=== PATIENT | female | born 1970 | race African-American/Black ===

== ENCOUNTER 2017-08-05 16:39 | Inpatient (IN) | payer OTHER ==
[2017-08-05 17:48] VITALS: BMI 29.7
[2017-08-05] MEDS ORDERED: MAGNESIUM CITRATE 300 ML BOTTLE PO PRN (18:23)
[2017-08-05] MEDS ORDERED: ACETAMINOPHEN 325 MG TABLET (FP) PO PRN (18:23)
[2017-08-05] MEDS ORDERED: P-EPHED 60MG/TRIPROLIDI 2.5MG TABLET PO PRN (18:23)
[2017-08-05] MEDS ORDERED: MENTHOL/PHENOL 1 EACH UD MM PRN (18:23)
[2017-08-05] MEDS ORDERED: NICOTINE POLACRILEX 4 MG GUM BUC PRN (18:23)
[2017-08-05] MEDS ORDERED: MAGNESIUM HYDROX 2400MG/30ML ORAL SUSPENSION 30 ML CUP PO PRN (18:23)
[2017-08-05] MEDS ORDERED: LOPERAMIDE HCL 2 MG CAPSULE PO PRN (18:23)
--- NOTE | 2017-08-05 18:26 | HP ---
Admission ROS [facility] Chief Complaint: I WANT TO GO TO REHAB Allergies/Adverse Reactions: Allergies Allergy/AdvReac Type Severity Reaction Status Date / Time No Known Allergies Allergy Verified 08/05/17 19:02 History of Present Illness: 47 YEARS OLD FEMALE WITH LONG HISTORY OF ALCOHOL NICOTINE DEPENDENCE HAS HIV IS ADMITTED TO REHAB Exam Limitations: No Limitations - Ebola screening Have you traveled outside of the country in the last 21 days: No Have you had contact with anyone from an Ebola affected area: No Have you been sick,other than usual withdrawal symptoms: No Do you have a fever: No - Review of Systems Constitutional: Weight Stable EENT: reports: No Symptoms Reported Respiratory: reports: Cough Cardiac: reports: No Symptoms Reported GI: reports: No Symptoms Reported : reports: No Symptoms Reported Musculoskeletal: reports: No Symptoms Reported Integumentary: reports: No Symptoms Reported Neuro: reports: No Symptoms reported Endocrine: reports: No Symptoms Reported Hematology: reports: No Symptoms Reported Psychiatric: reports: Judgement Intact, Mood/Affect Appropiate, Orientated x3 Other Systems: Reviewed and Negative Patient History - Patient Medical History Hx Anemia: No Hx Asthma: No Hx Chronic Obstructive Pulmonary Disease (COPD): No Hx Cancer: No Hx Cardiac Disorders: No Hx Congestive Heart Failure: No Hx Hypertension: No Hx Hypercholesterolemia: No Hx Pacemaker: No HX Cerebrovascular Accident: No Hx Seizures: No Hx Dementia: No Hx Diabetes: No Hx Gastrointestinal Disorders: No Hx Liver Disease: No Hx Genitourinary Disorders: No Hx Sexually Transmitted Disorders: No Hx Renal Disease (ESRD): No Hx Thyroid Disease: No Hx Human Immunodeficiency Virus (HIV): Yes Hx Hepatitis C: No Hx Depression: No Hx Suicide Attempt: Yes Hx Bipolar Disorder: No Hx Schizophrenia: No - Patient Surgical History Past Surgical History: No - PPD History Previous Implant?: Yes Documented Results: Negative w/o proof Implanted On Prior [facility] Admission?: No PPD to be Administered?: Yes - Reproductive History Patient is a Female of Child Bearing Age (11 -55 yrs old): Yes Last Menstrual Period: 08/03/17 Patient : No - Smoking Cessation Smoking history: Current every day smoker Have you smoked in the past 12 months: Yes Aproximately how many cigarettes per day: 20 Cigars Per Day: 0 Hx Chewing Tobacco Use: No Initiated information on smoking cessation: Yes 'Breaking Loose' booklet given: 08/05/17 - Substance & Tx. History Hx Alcohol Use: Yes Hx Substance Use: Yes Substance Use Type: Alcohol, Cocaine Hx Substance Use Treatment: Yes (07/29/17 [facility]) - Substances Abused Alcohol Route: Oral Frequency: Daily Amount used: [id number] Age of first use: 18 Date of Last Use: 07/29/17 Family Disease History - Family Disease History Family Disease History: Other: Father (/HIV), Mother () Admission Physical Exam [facility] - Vital Signs Vital Signs: Vital Signs - 24 hr 08/05/17 17:46 Temperature 98.0 F Pulse Rate 78 Respiratory 18 Rate Blood Pressure 127/74 - Physical General Appearance: Yes: No Apparent Distress, Nourished, Appropriately Dressed HEENTM: Yes: Hearing grossly Normal, Normal ENT Inspection, Normocephalic, Normal Voice Respiratory: Yes: Chest Non-Tender, Lungs Clear, Normal Breath Sounds, No Respiratory Distress, No Accessory Muscle Use Neck: Yes: Supple, Trachea in good position Breast: Yes: Breasts Symetrical Cardiology: Yes: Regular Rhythm, Regular Rate, S1, S2 Abdominal: Yes: Normal Bowel Sounds, Non Tender, Soft Genitourinary: Yes: Within Normal Limits Back: Yes: Normal Inspection Musculoskeletal: Yes: full range of Motion, Gait Steady Extremities: Yes: Normal Inspection, Normal Range of Motion, Non-Tender Neurological: Yes: Fully Oriented, Alert, Motor Strength 5/5, Normal Mood/Affect , Normal Response Integumentary: Yes: Normal Color, Warm Lymphatic: Yes: Within Normal Limits - Diagnostic (1) Alcohol dependence with uncomplicated withdrawal Current Visit: Yes Status: Acute (2) HIV (human immunodeficiency virus infection) Current Visit: Yes Status: Chronic Comment: PATIENT HAS HER OWN HIV MEDICATIONS WITH HER WAIT FOR VERIFICATION (3) Nicotine dependence Current Visit: Yes Status: Chronic Qualifiers: Nicotine product type: cigarettes Substance use status: in withdrawal Qualified Code(s): F17.213 - Nicotine dependence, cigarettes, with withdrawal (4) Vaginitis Current Visit: Yes Status: Acute Qualifiers: Chronicity: subacute Qualified Code(s): N76.1 - Subacute and chronic vaginitis Cleared for Admission [facility] - Detox or Rehab [facility] Level of Care: Observation Bed Detox Regimen/Protocol: Not Applicable Claeared for Rehab Admission: Yes [facility] Breath Alcohol Content Breath Alcohol Content: 0 Urine Pregancy Test - Result Urine Test Results: Negative- NO Line Present Urine Drug Screen - Results Drug Screen Negative: Yes Inpatient Rehab Admission - Initial Determination Are CD services needed?: Yes Free of communicable disease: Yes Not in need of hospitalization: Yes - Rehab Admission Criteria Previous failed treatment: Yes Poor recovery environment: Yes Comorbidities: Yes Lacks judgement: No Patient is meeting Inpatient Rehab admission criteria:: Yes
[2017-08-05] MEDS: THIAMINE HCL 100 MG TABLET (FP) PO SCH (21:36)
[2017-08-05] MEDS: guaiFENesin/D-METHORPHAN HB 10 ML UNIT-DOSE CUPS PO PRN (21:38)
[2017-08-05] MEDS ORDERED: FOSAMPRENAVIR CALCIUM PO SCH (22:00)
[2017-08-05] MEDS ORDERED: PATIENT'S OWN MEDICATION (NON-FORMULARY) (Valacyclovir Hcl [Valtrex -] 1,000 MG) PO SCH (22:00)
[2017-08-05] MEDS ORDERED: RITONAVIR PO SCH (22:00)
[2017-08-05] MEDS ORDERED: PATIENT'S OWN MEDICATION (NON-FORMULARY) (Raltegravir [Isentress] 400 MG) PO SCH (22:00)
[2017-08-05] MEDS ORDERED: PATIENT'S OWN MEDICATION (NON-FORMULARY) (Metronidazole [Flagyl -] 500 MG) PO SCH (22:00)
[2017-08-05] MEDS ORDERED: RALTEGRAVIR POTASSIUM 400 MG TAB PO ONE (22:41)
[2017-08-05] MEDS ORDERED: RITONAVIR 100 MG TABLET PO ONE (22:43)
[2017-08-06] MEDS ORDERED: PATIENT'S OWN MEDICATION (NON-FORMULARY) (Metronidazole [Flagyl -] 500 MG) PO ONE (00:45)
[2017-08-06] MEDS ORDERED: PATIENT'S OWN MEDICATION (NON-FORMULARY) (Valacyclovir Hcl [Valtrex -] 1,000 MG) PO ONE (00:45)
[2017-08-06] MEDS ORDERED: RITONAVIR PO ONE (00:45)
[2017-08-06] MEDS ORDERED: PATIENT'S OWN MEDICATION (NON-FORMULARY) (Raltegravir [Isentress] 400 MG) PO ONE (00:45)
[2017-08-06] MEDS ORDERED: SILVER SULFADIAZINE TP ONE (00:45)
[2017-08-06] MEDS ORDERED: FOSAMPRENAVIR CALCIUM PO ONE (00:45)
[2017-08-06 09:49] LABS: URINE APPEARANCE CLEAR; URINE BILIRUBIN NEGATIVE (NEGATIVE); URINE BLOOD NEGATIVE (NEGATIVE); URINE COLOR LTYELLOW; URINE GLUCOSE (UA) NEGATIVE (NEGATIVE); URINE KETONE NEGATIVE (NEGATIVE); URINE LEUK ESTERASE NEGATIVE (NEGATIVE); URINE NITRITE NEGATIVE (NEGATIVE); URINE PROTEIN NEGATIVE (NEGATIVE); URINE UROBILINOGEN NEGATIVE mg/dL (0.2-1.0)
[2017-08-06 09:58] LABS: CHLORIDE 105 mmol/L (98-107); HEMATOCRIT 36.9 % (32.4-45.2); HEMOGLOBIN 11.8 GM/dL (10.7-15.3); MCH 30.4 pg (25.7-33.7); MEAN CELL VOLUME 95.1 fl (80-96); MEAN PLT VOLUME 9.1 fl (7.5-11.1); PLATELET COUNT 268 K/MM3 (134-434); POTASSIUM 4.5 mmol/L (3.5-5.1); RBC 3.88 M/mm3 (3.60-5.2); RDW 14.6 % (11.6-15.6); SODIUM 136 mmol/L (136-145); WHITE BLOOD COUNT 6.9 K/mm3 (4.0-10.0)
[2017-08-06 10:06] LABS: ANION GAP 8 (8-16); BLOOD UREA NITROGEN 7 mg/dL (7-18); CALCIUM 8.4 mg/dL (8.5-10.1); CO2 23 mmol/L (21-32); CREATININE 0.7 mg/dL (0.55-1.02); GLUCOSE,RANDOM 101 mg/dL (74-106)
[2017-08-06] MEDS: PATIENT'S OWN MEDICATION (NON-FORMULARY) (Valacyclovir Hcl [Valtrex -] 1,000 MG) PO SCH ×2 (10:19→21:24)
[2017-08-06] MEDS: PATIENT'S OWN MEDICATION (NON-FORMULARY) (Metronidazole [Flagyl -] 500 MG) PO SCH ×2 (10:20→21:25)
[2017-08-06] MEDS: RITONAVIR PO SCH ×2 (10:20→21:25)
[2017-08-06] MEDS: PATIENT'S OWN MEDICATION (NON-FORMULARY) (Raltegravir [Isentress] 400 MG) PO SCH ×2 (10:20→21:25)
[2017-08-06] MEDS: PATIENT'S OWN MEDICATION (NON-FORMULARY) (Meloxicam 15 MG) PO SCH (10:21)
[2017-08-06] MEDS: PATIENT'S OWN MEDICATION (NON-FORMULARY) (Emtricitabine/Tenofovir (Tdf) [Truvada 200 Mg-30 PO SCH (10:21)
[2017-08-06] MEDS: FOSAMPRENAVIR CALCIUM PO SCH ×2 (10:21→21:24)
[2017-08-06] MEDS: NICOTINE 21 MG/24 HOURS TOPICAL PATCH TD SCH (10:23)
[2017-08-06] MEDS: PRENATAL VITAMINS W/ FOLIC ACID TABLET (FP) PO SCH (10:23)
[2017-08-06] MEDS: guaiFENesin/D-METHORPHAN HB 10 ML UNIT-DOSE CUPS PO PRN (16:54)
[2017-08-06] MEDS: THIAMINE HCL 100 MG TABLET (FP) PO SCH (21:24)
[2017-08-06] MEDS: SILVER SULFADIAZINE TP SCH (21:26)
[2017-08-07] MEDS: PATIENT'S OWN MEDICATION (NON-FORMULARY) (Meloxicam 15 MG) PO SCH (10:51)
[2017-08-07] MEDS: NICOTINE 21 MG/24 HOURS TOPICAL PATCH TD SCH (10:51)
[2017-08-07] MEDS: PRENATAL VITAMINS W/ FOLIC ACID TABLET (FP) PO SCH (10:51)
[2017-08-07] MEDS: PATIENT'S OWN MEDICATION (NON-FORMULARY) (Raltegravir [Isentress] 400 MG) PO SCH ×2 (10:51→21:35)
[2017-08-07] MEDS: PATIENT'S OWN MEDICATION (NON-FORMULARY) (Valacyclovir Hcl [Valtrex -] 1,000 MG) PO SCH ×2 (10:51→21:35)
[2017-08-07] MEDS: PATIENT'S OWN MEDICATION (NON-FORMULARY) (Emtricitabine/Tenofovir (Tdf) [Truvada 200 Mg-30 PO SCH (10:51)
[2017-08-07] MEDS: RITONAVIR PO SCH ×2 (10:51→21:35)
[2017-08-07] MEDS: FOSAMPRENAVIR CALCIUM PO SCH ×2 (10:51→21:35)
[2017-08-07] MEDS: PATIENT'S OWN MEDICATION (NON-FORMULARY) (Metronidazole [Flagyl -] 500 MG) PO SCH ×2 (10:52→21:39)
[2017-08-07] MEDS: guaiFENesin/D-METHORPHAN HB 10 ML UNIT-DOSE CUPS PO PRN (12:08)
--- NOTE | 2017-08-07 12:15 | HP ---
Psychiatrist Admission - Data Date of interview: 08/07/17 Admission source: [facility] Identifying data: THis is the first admission to [address] [place] [address] for this 47 years old AA single mother of 32 yo daughter,resides with familty,supported by [facility]. Medical History: HIV+,Hep B. Psychiatric History: Patient denies psychiatric history Physical/Sexual Abuse/Trauma History: denies Vital Signs: Vital Signs - 24 hr 08/07/17 08/07/17 08/07/17 00:30 03:30 07:10 Temperature 97.8 F Pulse Rate 80 Respiratory 18 18 Rate Blood Pressure 111/66 Allergies/Adverse Reactions: Allergies Allergy/AdvReac Type Severity Reaction Status Date / Time No Known Allergies Allergy Verified 08/05/17 19:02 Date of last physical exam: 08/05/17 Concur with the findings of this exam: Yes - Substance Abuse/Tx History Hx Alcohol Use: Yes (reports drinking since 18 years old) Hx Substance Use: Yes (crack/cocaine since 18 yo,spending $200 daily) Substance Use Type: Alcohol, Cocaine Hx Substance Use Treatment: Yes (longest abstinence about 4 years) Mental Status Exam - Mental Status Exam Alert and Oriented to: Time, Place, Person Cognitive Function: Grossly Intact Patient Appearance: Well Groomed Mood: Euthymic Affect: Mood Congruent Patient Behavior: Cooperative Speech Pattern: Clear Voice Loudness: Normal Thought Process: Goal Oriented Thought Disorder: Not Present Hallucinations: Denies Suicidal Ideation: Denies Homicidal Ideation: Denies Insight/Judgement: Fair Sleep: Fair Muscle strength/Tone: Normal Gait/Station: Normal Psychiatric Findings - Problem List ([place] 1, 2,3) (1) HIV (human immunodeficiency virus infection) Current Visit: Yes Status: Chronic Comment: PATIENT HAS HER OWN HIV MEDICATIONS WITH HER WAIT FOR VERIFICATION (2) Nicotine dependence Current Visit: Yes Status: Chronic Qualifiers: Nicotine product type: cigarettes Substance use status: in withdrawal Qualified Code(s): F17.213 - Nicotine dependence, cigarettes, with withdrawal (3) Alcohol dependence Current Visit: Yes Status: Acute (4) Cocaine dependence Current Visit: Yes Status: Acute - Initial Treatment Plan Initial Treatment Plan: Will monitor progress.
[2017-08-07] MEDS: SILVER SULFADIAZINE TP SCH ×2 (21:36→21:39)
[2017-08-07] MEDS: THIAMINE HCL 100 MG TABLET (FP) PO SCH (21:39)
[2017-08-08] MEDS: FOSAMPRENAVIR CALCIUM PO SCH ×2 (10:00→21:20)
[2017-08-08] MEDS: PATIENT'S OWN MEDICATION (NON-FORMULARY) (Emtricitabine/Tenofovir (Tdf) [Truvada 200 Mg-30 PO SCH (10:00)
[2017-08-08] MEDS: PATIENT'S OWN MEDICATION (NON-FORMULARY) (Meloxicam 15 MG) PO SCH (10:01)
[2017-08-08] MEDS: PATIENT'S OWN MEDICATION (NON-FORMULARY) (Metronidazole [Flagyl -] 500 MG) PO SCH ×2 (10:02→21:21)
[2017-08-08] MEDS: NICOTINE 21 MG/24 HOURS TOPICAL PATCH TD SCH (10:02)
[2017-08-08] MEDS: PRENATAL VITAMINS W/ FOLIC ACID TABLET (FP) PO SCH (10:03)
[2017-08-08] MEDS: RITONAVIR PO SCH ×2 (10:03→21:20)
[2017-08-08] MEDS: PATIENT'S OWN MEDICATION (NON-FORMULARY) (Raltegravir [Isentress] 400 MG) PO SCH ×2 (10:03→21:21)
[2017-08-08] MEDS: PATIENT'S OWN MEDICATION (NON-FORMULARY) (Valacyclovir Hcl [Valtrex -] 1,000 MG) PO SCH ×2 (10:03→21:21)
[2017-08-08] MEDS: THIAMINE HCL 100 MG TABLET (FP) PO SCH (21:20)
[2017-08-08] MEDS: SILVER SULFADIAZINE TP SCH (21:22)
--- NOTE | 2017-08-09 07:20 | EKG ---
Test Reason : Blood Pressure : / mmHG Vent. Rate : 081 BPM Atrial Rate : 081 BPM P-R Int : 174 ms QRS Dur : 078 ms QT Int : 396 ms P-R-T Axes : 045 010 046 degrees QTc Int : 460 ms NORMAL SINUS RHYTHM NORMAL ECG NO PREVIOUS ECGS AVAILABLE Confirmed by YURIDIA MOROCHO, MADHU ([id number]) on 08/09/2017 7:20:16 AM Referred By: Confirmed By:MADHU SHI MD
[2017-08-09] MEDS: PATIENT'S OWN MEDICATION (NON-FORMULARY) (Meloxicam 15 MG) PO SCH (10:05)
[2017-08-09] MEDS: PATIENT'S OWN MEDICATION (NON-FORMULARY) (Emtricitabine/Tenofovir (Tdf) [Truvada 200 Mg-30 PO SCH (10:05)
[2017-08-09] MEDS: PATIENT'S OWN MEDICATION (NON-FORMULARY) (Valacyclovir Hcl [Valtrex -] 1,000 MG) PO SCH ×2 (10:05→21:18)
[2017-08-09] MEDS: PATIENT'S OWN MEDICATION (NON-FORMULARY) (Raltegravir [Isentress] 400 MG) PO SCH ×2 (10:06→21:18)
[2017-08-09] MEDS: FOSAMPRENAVIR CALCIUM PO SCH ×2 (10:06→21:18)
[2017-08-09] MEDS: RITONAVIR PO SCH ×2 (10:06→21:18)
[2017-08-09] MEDS: PATIENT'S OWN MEDICATION (NON-FORMULARY) (Metronidazole [Flagyl -] 500 MG) PO SCH ×2 (10:07→21:18)
[2017-08-09] MEDS: NICOTINE 21 MG/24 HOURS TOPICAL PATCH TD SCH (10:07)
[2017-08-09] MEDS: PRENATAL VITAMINS W/ FOLIC ACID TABLET (FP) PO SCH (10:07)
[2017-08-09] MEDS: THIAMINE HCL 100 MG TABLET (FP) PO SCH (21:17)
[2017-08-09] MEDS: SILVER SULFADIAZINE TP SCH (21:19)
[2017-08-10] MEDS: PRENATAL VITAMINS W/ FOLIC ACID TABLET (FP) PO SCH (10:17)
[2017-08-10] MEDS: PATIENT'S OWN MEDICATION (NON-FORMULARY) (Emtricitabine/Tenofovir (Tdf) [Truvada 200 Mg-30 PO SCH (10:18)
[2017-08-10] MEDS: RITONAVIR PO SCH ×2 (10:18→21:27)
[2017-08-10] MEDS: PATIENT'S OWN MEDICATION (NON-FORMULARY) (Valacyclovir Hcl [Valtrex -] 1,000 MG) PO SCH ×2 (10:18→21:27)
[2017-08-10] MEDS: PATIENT'S OWN MEDICATION (NON-FORMULARY) (Meloxicam 15 MG) PO SCH (10:18)
[2017-08-10] MEDS: PATIENT'S OWN MEDICATION (NON-FORMULARY) (Raltegravir [Isentress] 400 MG) PO SCH ×2 (10:18→21:26)
[2017-08-10] MEDS: FOSAMPRENAVIR CALCIUM PO SCH ×2 (10:19→21:25)
[2017-08-10] MEDS: PATIENT'S OWN MEDICATION (NON-FORMULARY) (Metronidazole [Flagyl -] 500 MG) PO SCH ×2 (10:20→21:26)
[2017-08-10] MEDS: NICOTINE 21 MG/24 HOURS TOPICAL PATCH TD SCH (10:20)
[2017-08-10] MEDS: THIAMINE HCL 100 MG TABLET (FP) PO SCH (21:28)
[2017-08-10] MEDS: SILVER SULFADIAZINE TP SCH (21:29)
[2017-08-10] MEDS ORDERED: PT OWN MED DRAWER 7, Y5N ONE (21:30)
[2017-08-11] MEDS: PATIENT'S OWN MEDICATION (NON-FORMULARY) (Valacyclovir Hcl [Valtrex -] 1,000 MG) PO SCH ×2 (09:47→21:25)
[2017-08-11] MEDS: PATIENT'S OWN MEDICATION (NON-FORMULARY) (Meloxicam 15 MG) PO SCH (09:47)
[2017-08-11] MEDS: RITONAVIR PO SCH ×2 (09:47→21:27)
[2017-08-11] MEDS: PATIENT'S OWN MEDICATION (NON-FORMULARY) (Raltegravir [Isentress] 400 MG) PO SCH ×2 (09:47→21:25)
[2017-08-11] MEDS: FOSAMPRENAVIR CALCIUM PO SCH ×2 (09:47→21:25)
[2017-08-11] MEDS: PATIENT'S OWN MEDICATION (NON-FORMULARY) (Metronidazole [Flagyl -] 500 MG) PO SCH ×2 (09:48→21:27)
[2017-08-11] MEDS: PATIENT'S OWN MEDICATION (NON-FORMULARY) (Emtricitabine/Tenofovir (Tdf) [Truvada 200 Mg-30 PO SCH (09:48)
[2017-08-11] MEDS: NICOTINE 21 MG/24 HOURS TOPICAL PATCH TD SCH (09:48)
[2017-08-11] MEDS: PRENATAL VITAMINS W/ FOLIC ACID TABLET (FP) PO SCH (09:48)
[2017-08-11] MEDS ORDERED: FLUCONAZOLE 50 MG TABLET PO ONE (15:36)
--- NOTE | 2017-08-11 17:39 | PN ---
S Progress Note (SOAP) Subjective: Patient seen for c/o internal and external vaginal itching since yesterday accompanied by white, creamy vaginal discharge. As per patient, she believes the antibiotic (flagyl) gave her a yeast infection. Patient is requesting oral antibiotic instead of vaginal cream. As per patient, she took pill for yeast infection in the past in which she took pills for 3 days. She agreed to take diflucan 150mg PO x 2 doses but 3 days apart. Objective: 08/11/17 17:37 Last Vital Signs Temp Pulse Resp BP Pulse Ox 98.5 F 69 18 107/73 08/11/17 07:20 08/11/17 07:20 08/11/17 07:20 08/11/17 07:20 Laboratory Tests 08/06/17 08/06/17 08/06/17 07:40 07:40 08:40 WBC 6.9 RBC 3.88 Hgb 11.8 Hct 36.9 MCV 95.1 MCH 30.4 MCHC 32.0 RDW 14.6 Plt Count 268 MPV 9.1 Sodium 136 Potassium 4.5 Chloride 105 Carbon Dioxide 23 Anion Gap 8 BUN 7 Creatinine 0.7 Random Glucose 101 Calcium 8.4 L Urine Color Ltyellow Urine Appearance Clear Urine pH 6.0 Ur Specific [place] 1.013 Urine Protein Negative Urine Glucose (UA) Negative Urine Ketones Negative Urine Blood Negative Urine Nitrite Negative Urine Bilirubin Negative Urine Urobilinogen Negative Ur Leukocyte Esterase Negative Labs noted Assessment: 08/11/17 17:38 Patient seen for vaginal candidiasis Plan: Vaginal candidiasis most likely due to flagyl: diflucan 150mg PO x 2 doses ( first dose today and second dose on 08/14/17)
[2017-08-11] MEDS: SILVER SULFADIAZINE TP SCH (21:27)
[2017-08-11] MEDS: THIAMINE HCL 100 MG TABLET (FP) PO SCH (21:29)
[2017-08-11] MEDS ORDERED: PT OWN MED DRAWER 7, Y5N ONE (21:30)
[2017-08-12] MEDS: PRENATAL VITAMINS W/ FOLIC ACID TABLET (FP) PO SCH (10:13)
[2017-08-12] MEDS: PATIENT'S OWN MEDICATION (NON-FORMULARY) (Metronidazole [Flagyl -] 500 MG) PO SCH (10:13)
[2017-08-12] MEDS: PATIENT'S OWN MEDICATION (NON-FORMULARY) (Emtricitabine/Tenofovir (Tdf) [Truvada 200 Mg-30 PO SCH (10:13)
[2017-08-12] MEDS: PATIENT'S OWN MEDICATION (NON-FORMULARY) (Valacyclovir Hcl [Valtrex -] 1,000 MG) PO SCH ×2 (10:14→21:22)
[2017-08-12] MEDS: PATIENT'S OWN MEDICATION (NON-FORMULARY) (Raltegravir [Isentress] 400 MG) PO SCH ×2 (10:14→21:24)
[2017-08-12] MEDS: FOSAMPRENAVIR CALCIUM PO SCH ×2 (10:14→21:24)
[2017-08-12] MEDS: PATIENT'S OWN MEDICATION (NON-FORMULARY) (Meloxicam 15 MG) PO SCH (10:14)
[2017-08-12] MEDS: NICOTINE 21 MG/24 HOURS TOPICAL PATCH TD SCH (10:15)
[2017-08-12] MEDS: RITONAVIR PO SCH ×2 (10:15→21:24)
[2017-08-12] MEDS ORDERED: COLLOIDAL OATMEAL 1 BAR EACH TP PRN (10:31)
[2017-08-12] MEDS ORDERED: PT OWN MED DRAWER 7, Y5N ONE (15:54)
[2017-08-12] MEDS: THIAMINE HCL 100 MG TABLET (FP) PO SCH (21:20)
[2017-08-12] MEDS: SILVER SULFADIAZINE 1% TOP CREAM 50 GM JAR TP SCH (21:22)
[2017-08-13] MEDS: PATIENT'S OWN MEDICATION (NON-FORMULARY) (Raltegravir [Isentress] 400 MG) PO SCH ×2 (10:09→21:24)
[2017-08-13] MEDS: PATIENT'S OWN MEDICATION (NON-FORMULARY) (Valacyclovir Hcl [Valtrex -] 1,000 MG) PO SCH ×2 (10:09→21:25)
[2017-08-13] MEDS: PATIENT'S OWN MEDICATION (NON-FORMULARY) (Meloxicam 15 MG) PO SCH (10:09)
[2017-08-13] MEDS: PRENATAL VITAMINS W/ FOLIC ACID TABLET (FP) PO SCH (10:09)
[2017-08-13] MEDS: FOSAMPRENAVIR CALCIUM PO SCH ×2 (10:09→21:24)
[2017-08-13] MEDS: PATIENT'S OWN MEDICATION (NON-FORMULARY) (Emtricitabine/Tenofovir (Tdf) [Truvada 200 Mg-30 PO SCH (10:09)
[2017-08-13] MEDS: RITONAVIR PO SCH ×2 (10:09→21:24)
[2017-08-13] MEDS: NICOTINE 21 MG/24 HOURS TOPICAL PATCH TD SCH (10:09)
[2017-08-13] MEDS ORDERED: PT OWN MED DRAWER 7, Y5N ONE (15:59)
[2017-08-13] MEDS: guaiFENesin/D-METHORPHAN HB 10 ML UNIT-DOSE CUPS PO PRN (17:33)
[2017-08-13] MEDS: THIAMINE HCL 100 MG TABLET (FP) PO SCH (21:23)
[2017-08-13] MEDS: SILVER SULFADIAZINE 1% TOP CREAM 50 GM JAR TP SCH (21:25)
[2017-08-14] MEDS: guaiFENesin/D-METHORPHAN HB 10 ML UNIT-DOSE CUPS PO PRN (06:55)
[2017-08-14] MEDS ORDERED: PT OWN MED DRAWER 7, Y5N ONE ×3 (08:23→11:08)
[2017-08-14] MEDS ORDERED: FLUCONAZOLE 50 MG TABLET PO ONE (10:00)
[2017-08-14] MEDS: PATIENT'S OWN MEDICATION (NON-FORMULARY) (Meloxicam 15 MG) PO SCH (10:52)
[2017-08-14] MEDS: PRENATAL VITAMINS W/ FOLIC ACID TABLET (FP) PO SCH (10:52)
[2017-08-14] MEDS: PATIENT'S OWN MEDICATION (NON-FORMULARY) (Emtricitabine/Tenofovir (Tdf) [Truvada 200 Mg-30 PO SCH (10:53)
[2017-08-14] MEDS: PATIENT'S OWN MEDICATION (NON-FORMULARY) (Valacyclovir Hcl [Valtrex -] 1,000 MG) PO SCH ×2 (10:53→21:38)
[2017-08-14] MEDS: RITONAVIR PO SCH ×2 (10:53→21:38)
[2017-08-14] MEDS: PATIENT'S OWN MEDICATION (NON-FORMULARY) (Raltegravir [Isentress] 400 MG) PO SCH ×2 (10:53→21:37)
[2017-08-14] MEDS: FOSAMPRENAVIR CALCIUM PO SCH ×2 (10:53→21:38)
[2017-08-14] MEDS: NICOTINE 21 MG/24 HOURS TOPICAL PATCH TD SCH (10:55)
[2017-08-14] MEDS: THIAMINE HCL 100 MG TABLET (FP) PO SCH (21:38)
[2017-08-14] MEDS: SILVER SULFADIAZINE 1% TOP CREAM 50 GM JAR TP SCH (22:08)
[2017-08-15] MEDS: PRENATAL VITAMINS W/ FOLIC ACID TABLET (FP) PO SCH (10:14)
[2017-08-15] MEDS: NICOTINE 21 MG/24 HOURS TOPICAL PATCH TD SCH (10:15)
[2017-08-15] MEDS: PATIENT'S OWN MEDICATION (NON-FORMULARY) (Valacyclovir Hcl [Valtrex -] 1,000 MG) PO SCH ×2 (10:15→21:39)
[2017-08-15] MEDS: PATIENT'S OWN MEDICATION (NON-FORMULARY) (Raltegravir [Isentress] 400 MG) PO SCH ×2 (10:16→21:40)
[2017-08-15] MEDS: FOSAMPRENAVIR CALCIUM PO SCH ×2 (10:16→21:39)
[2017-08-15] MEDS: PATIENT'S OWN MEDICATION (NON-FORMULARY) (Emtricitabine/Tenofovir (Tdf) [Truvada 200 Mg-30 PO SCH (10:16)
[2017-08-15] MEDS: RITONAVIR PO SCH ×2 (10:16→21:40)
[2017-08-15] MEDS: PATIENT'S OWN MEDICATION (NON-FORMULARY) (Meloxicam 15 MG) PO SCH (10:17)
[2017-08-15] MEDS ORDERED: PT OWN MED DRAWER 7, Y5N ONE (10:42)
[2017-08-15] MEDS: MAG HYDROX/AL HYDROX/SIMETH 30 ML UNIT-DOSE CUP PO PRN (11:29)
[2017-08-15] MEDS: THIAMINE HCL 100 MG TABLET (FP) PO SCH (21:39)
[2017-08-15] MEDS: SILVER SULFADIAZINE 1% TOP CREAM 50 GM JAR TP SCH (21:41)
[2017-08-16] MEDS: PATIENT'S OWN MEDICATION (NON-FORMULARY) (Emtricitabine/Tenofovir (Tdf) [Truvada 200 Mg-30 PO SCH (09:53)
[2017-08-16] MEDS: NICOTINE 21 MG/24 HOURS TOPICAL PATCH TD SCH (09:53)
[2017-08-16] MEDS: PRENATAL VITAMINS W/ FOLIC ACID TABLET (FP) PO SCH (09:53)
[2017-08-16] MEDS: PATIENT'S OWN MEDICATION (NON-FORMULARY) (Valacyclovir Hcl [Valtrex -] 1,000 MG) PO SCH ×2 (09:54→21:27)
[2017-08-16] MEDS: PATIENT'S OWN MEDICATION (NON-FORMULARY) (Raltegravir [Isentress] 400 MG) PO SCH ×2 (09:54→21:26)
[2017-08-16] MEDS: PATIENT'S OWN MEDICATION (NON-FORMULARY) (Meloxicam 15 MG) PO SCH (09:54)
[2017-08-16] MEDS: RITONAVIR PO SCH ×2 (09:54→21:26)
[2017-08-16] MEDS: FOSAMPRENAVIR CALCIUM PO SCH ×2 (09:54→21:26)
[2017-08-16] MEDS: SILVER SULFADIAZINE 1% TOP CREAM 50 GM JAR TP SCH (21:25)
[2017-08-16] MEDS: THIAMINE HCL 100 MG TABLET (FP) PO SCH (21:26)
[2017-08-17] MEDS ORDERED: PT OWN MED DRAWER 7, Y5N ONE (08:40)
[2017-08-17] MEDS: PATIENT'S OWN MEDICATION (NON-FORMULARY) (Meloxicam 15 MG) PO SCH (10:22)
[2017-08-17] MEDS: PATIENT'S OWN MEDICATION (NON-FORMULARY) (Emtricitabine/Tenofovir (Tdf) [Truvada 200 Mg-30 PO SCH (10:22)
[2017-08-17] MEDS: PATIENT'S OWN MEDICATION (NON-FORMULARY) (Valacyclovir Hcl [Valtrex -] 1,000 MG) PO SCH ×2 (10:22→21:39)
[2017-08-17] MEDS: RITONAVIR PO SCH ×2 (10:22→21:39)
[2017-08-17] MEDS: PRENATAL VITAMINS W/ FOLIC ACID TABLET (FP) PO SCH (10:22)
[2017-08-17] MEDS: FOSAMPRENAVIR CALCIUM PO SCH ×2 (10:22→21:39)
[2017-08-17] MEDS: PATIENT'S OWN MEDICATION (NON-FORMULARY) (Raltegravir [Isentress] 400 MG) PO SCH ×2 (10:22→21:39)
[2017-08-17] MEDS: NICOTINE 21 MG/24 HOURS TOPICAL PATCH TD SCH (10:23)
[2017-08-17] MEDS: THIAMINE HCL 100 MG TABLET (FP) PO SCH (21:38)
[2017-08-17] MEDS: SILVER SULFADIAZINE 1% TOP CREAM 50 GM JAR TP SCH (21:40)
[2017-08-17] MEDS: guaiFENesin/D-METHORPHAN HB 10 ML UNIT-DOSE CUPS PO PRN (21:56)
[2017-08-18] MEDS: PATIENT'S OWN MEDICATION (NON-FORMULARY) (Meloxicam 15 MG) PO SCH (10:26)
[2017-08-18] MEDS: FOSAMPRENAVIR CALCIUM PO SCH ×2 (10:26→21:34)
[2017-08-18] MEDS: PATIENT'S OWN MEDICATION (NON-FORMULARY) (Valacyclovir Hcl [Valtrex -] 1,000 MG) PO SCH ×2 (10:27→21:35)
[2017-08-18] MEDS: PATIENT'S OWN MEDICATION (NON-FORMULARY) (Emtricitabine/Tenofovir (Tdf) [Truvada 200 Mg-30 PO SCH (10:27)
[2017-08-18] MEDS: PATIENT'S OWN MEDICATION (NON-FORMULARY) (Raltegravir [Isentress] 400 MG) PO SCH ×2 (10:28→21:34)
[2017-08-18] MEDS: RITONAVIR PO SCH ×2 (10:28→21:34)
[2017-08-18] MEDS: NICOTINE 21 MG/24 HOURS TOPICAL PATCH TD SCH (10:29)
[2017-08-18] MEDS: PRENATAL VITAMINS W/ FOLIC ACID TABLET (FP) PO SCH (10:29)
[2017-08-18] MEDS: MAG HYDROX/AL HYDROX/SIMETH 30 ML UNIT-DOSE CUP PO PRN (10:30)
[2017-08-18] MEDS: THIAMINE HCL 100 MG TABLET (FP) PO SCH (21:33)
[2017-08-18] MEDS: SILVER SULFADIAZINE 1% TOP CREAM 50 GM JAR TP SCH (21:35)
[2017-08-19 07:51] VITALS: BP 108/63; PULSE 76; TEMP 99.1
--- NOTE | 2017-08-19 09:43 | PN ---
Psychiatric Progress Note Vital Signs: Vital Signs Period Temp Pulse Resp BP Sys/Yusuf Pulse Ox Last 24 Hr 99.1 F 76 18-18 108/63 Date of Session: 08/19/17 Chief Complaint:: Discharge visit HPI: Patient addressed Cocaine and Alcohol dependence. ROS: Significant for hiv+. Current Medications: Active Medications Generic Name Dose Route Start Last Admin Trade Name Freq PRN Reason Stop Dose Admin Acetaminophen 650 mg 08/05/17 18:23 Tylenol - PO Q4H PRN FEVER OR PAIN Al Hydroxide/Mg Hydroxide 30 ml 08/05/17 18:23 08/18/17 10:30 Mylanta Oral Suspension - PO 30 ml Q6H PRN Administration DYSPEPSIA Colloidal Oatmeal 1 applic 08/12/17 10:31 08/12/17 15:50 Aveeno Soap - TP 1 applic DAILY PRN Administration HYGEINE Eucalyptus/Menthol/Phenol/Sorbitol 1 each 08/05/17 18:23 Cepastat Lozenge - MM Q4H PRN SORE THROAT Guaifenesin 10 ml 08/05/17 18:23 08/17/17 21:56 Robitussin Dm - PO 10 ml Q6H PRN Administration COUGH Loperamide HCl 4 mg 08/05/17 18:23 Imodium - PO Q6H PRN DIARRHEA Magnesium Citrate 300 ml 08/05/17 18:23 Citroma - PO Q48H PRN CONSTIPATION Magnesium Hydroxide 30 ml 08/05/17 18:23 Milk Of Magnesia - PO DAILY PRN CONSTIPATION Nicotine 21 mg 08/06/17 10:00 08/18/17 10:29 Nicoderm Patch - TD Not Given DAILY YURI Nicotine Polacrilex 4 mg 08/05/17 18:23 Nicorette Gum - BUC Q2H PRN NICOTINE REPLACEMENT RX Non-Formulary Medication 15 mg 08/06/17 10:00 08/18/17 10:26 Meloxicam PO 15 mg DAILY YURI Administration Non-Formulary Medication 1 each 08/06/17 10:00 08/18/17 10:27 Emtricitabine/Tenofovir (Tdf) [Truvada 200 Mg-300 Mg Tablet] PO 1 each DAILY YURI Administration Non-Formulary Medication 700 mg 08/05/17 23:51 08/18/17 21:34 Fosamprenavir Calcium [Lexiva -] PO 700 mg BID YURI Administration Non-Formulary Medication 400 mg 08/05/17 23:51 08/18/17 21:34 Raltegravir [Isentress] PO 400 mg BID YURI Administration Non-Formulary Medication 100 tab 08/05/17 23:51 08/18/17 21:34 Ritonavir [Norvir -] PO 100 tab BID YURI Administration Non-Formulary Medication 1,000 mg 08/05/17 23:51 08/18/17 21:35 Valacyclovir Hcl [Valtrex -] PO 1,000 mg BID YURI Administration Multivit/Folic Acid/Iron 1 tab 08/06/17 10:00 08/18/17 10:29 Vitamins ([facility]) - PO 1 tab DAILY YURI Administration Pseudoephedrine/Triprolidine 1 combo 08/05/17 18:23 Actifed - PO TID PRN NASAL CONGESTION Silver Sulfadiazine 1 applic 08/12/17 22:00 08/18/17 21:35 Silvadene - TP Not Given HS YURI Thiamine HCl 100 mg 08/05/17 22:00 08/18/17 21:33 Vitamin B1 - PO 100 mg HS YURI Administration Current Side Effect: No Lab tests ordered: No Lab tests reviewed: Yes Provider note:: Patient completed this program today.She has met her treatment goals and will continue to address her issues on outpatient basis at [facility]. Patient identifies areas of difficulties and behaviors which contribute to relapse.Patient focuses on insight gained in treatment including importance of changing attitude and ways she plans to utilze support ,coping skills to maintain recovery. Patient is stable for discharge today. Total face to face time:: 25 Mental Status Exam - Mental Status Exam Alert and Oriented to: Time, Place, Person Cognitive Function: Grossly Intact Patient Appearance: Well Groomed Mood: Hopeful, Euthymic Affect: Appropriate, Mood Congruent Patient Behavior: Cooperative Speech Pattern: Clear Voice Loudness: Normal Thought Process: Goal Oriented Thought Disorder: Not Present Hallucinations: Denies Suicidal Ideation: Denies Homicidal Ideation: Denies Insight/Judgement: Fair Sleep: Fair Appetite: Good Muscle strength/Tone: Normal Gait/Station: Normal Psychiatric Treatment Plan - Problem List (1) HIV (human immunodeficiency virus infection) Comment: PATIENT HAS HER OWN HIV MEDICATIONS WITH HER WAIT FOR VERIFICATION (2) Nicotine dependence Qualifiers: Nicotine product type: cigarettes Substance use status: in withdrawal Qualified Code(s): F17.213 - Nicotine dependence, cigarettes, with withdrawal
[2017-08-19] MEDS: PRENATAL VITAMINS W/ FOLIC ACID TABLET (FP) PO SCH (09:46)
[2017-08-19] MEDS: PATIENT'S OWN MEDICATION (NON-FORMULARY) (Emtricitabine/Tenofovir (Tdf) [Truvada 200 Mg-30 PO SCH (09:46)
[2017-08-19] MEDS: PATIENT'S OWN MEDICATION (NON-FORMULARY) (Valacyclovir Hcl [Valtrex -] 1,000 MG) PO SCH (09:47)
[2017-08-19] MEDS: RITONAVIR PO SCH (09:48)
[2017-08-19] MEDS: FOSAMPRENAVIR CALCIUM PO SCH (09:48)
[2017-08-19] MEDS: PATIENT'S OWN MEDICATION (NON-FORMULARY) (Meloxicam 15 MG) PO SCH (09:48)
[2017-08-19] MEDS: NICOTINE 21 MG/24 HOURS TOPICAL PATCH TD SCH (09:49)
[2017-08-19] MEDS: PATIENT'S OWN MEDICATION (NON-FORMULARY) (Raltegravir [Isentress] 400 MG) PO SCH (09:49)
== END 2017-08-19 05:00 | disposition home or self-care (01) | DRG 772 ==
LOC: YASAS 16:39 → Y3E 18:18
PROVIDERS: ADMIT Psychiatry & Neurology Psychiatry; ATTEND Psychiatry & Neurology Psychiatry
PROC: HZ42ZZZ Group Counseling for Substance Abuse Treatment, Cognitive-Behavioral (ICD-10-PCS; principal; 2017-08-05)
DX: F10.20 Alcohol dependence, uncomplicated (principal); F14.20 Cocaine dependence, uncomplicated; F17.213 Nicotine dependence, cigarettes, with withdrawal; N76.1 Subacute and chronic vaginitis; Z21 Asymptomatic human immunodeficiency virus [HIV] infection status; Z91.5 Personal history of self-harm
CPT/HCPCS: 36415; 80048; 81003; 85027; 93005; 93010